=== PATIENT | male | born 1960 | race Caucasian/White ===

== ENCOUNTER 2016-08-21 15:27 | Emergency (ER) | payer SELFPAY ==
[~2016-08-21] VITALS: Ht 170.2 cm; Wt 70.3 kg
[2016-08-21 16:38] LABS: Urine Blood Negative /uL (Negative); Urine Color Yellow (Yellow); Urine Glucose Normal (Normal); Urine Hyaline Cast FEW /lpf (0 - 2); Urine Ketone TRACE (Negative); Urine Mucus FEW (None Seen); Urine Nitrite Negative (Negative); Urine RBC 1 /hpf (0 - 3); Urine Squamous Epithelial Cell FEW /hpf (<5)
[2016-08-21 16:53] LABS: Urine Bilirubin POSITIVE (Negative)
[2016-08-21 17:06] LABS: DEFINITIVE VIEW TRANSMISSION; Hemoglobin 19.9 g/dL (13.5-17.5); Mean Corpuscular Hemoglobin 30.8 pg (28.0-32.0); Mean Corpuscular Hgb Conc. 33.4 g/dL (32.0-36.0); Mean Platelet Volume 7.7 fL (7.4-10.4); Platelet Count (auto) 363 10^3/uL (140-450); Red Cell Distribution Width 14.1 % (11.6-16.0); White Blood Cell 26.7 10^3/uL (4.4-10.8)
[2016-08-21 17:09] LABS: Hematocrit 59.5 % (41.0-53.0)
[2016-08-21 17:11] LABS: Metamyelocytes % 0; Myelocytes % 0; Promyelocytes % 0; Reactive Lymphocytes 0
[2016-08-21 17:23] LABS: Albumin 3.2 g/dL (3.4-5.0); BUN/Creatinine Ratio 22.8; Bilirubin, Total 0.5 mg/dL (0.2-1.0); Calcium 8.8 mg/dL (8.5-10.1); Potassium 3.8 mmol/L (3.5-5.1); Total Protein 6.5 g/dL (6.4-8.2)
[2016-08-21 17:32] LABS: Platelet Estimate Adequate; RBC Morphology Normal
[2016-08-21] MEDS: SODIUM CHLORIDE 0.9% 2,000 ML IV ONE (22:51)
[2016-08-21] MEDS: ONDANSETRON HCL 4 MG/2 ML VIAL IV ONE (22:51)
[2016-08-21] MEDS: IOHEXOL 300 MG/ML 100ML BOTTLE IJ ONE (23:02)
[2016-08-21] MEDS: GASTROGRAFIN 30 ML SOL ONE (23:02)
[2016-08-22 04:18] LABS: DEFINITIVE VIEW TRANSMISSION; Hemoglobin 15.7 g/dL (13.5-17.5); Mean Corpuscular Hemoglobin 30.7 pg (28.0-32.0); Mean Corpuscular Hgb Conc. 34.1 g/dL (32.0-36.0); Mean Platelet Volume 7.5 fL (7.4-10.4); Platelet Count (auto) 289 10^3/uL (140-450); Red Cell Distribution Width 14.1 % (11.6-16.0); White Blood Cell 20.3 10^3/uL (4.4-10.8)
[2016-08-22 04:38] LABS: Metamyelocytes % 0; Myelocytes % 0; Promyelocytes % 0; Reactive Lymphocytes 0
[2016-08-22 04:54] LABS: Platelet Estimate Adequate
[2016-08-22 04:55] LABS: Hypersegmented Neutrophils Present; RBC Morphology Normal
[2016-08-22 05:07] VITALS: BP 107/64
== END 2016-08-22 05:22 | disposition home or self-care (01) ==
LOC: ER 15:37
DX: K52.9 Noninfective gastroenteritis and colitis, unspecified (principal); E86.0 Dehydration; F17.210 Nicotine dependence, cigarettes, uncomplicated; F12.10 Cannabis abuse, uncomplicated; F15.10 Other stimulant abuse, uncomplicated
CPT/HCPCS: 36415; 74176; 80053; 80307; 81001; 83605; 85007; 85027; 87040; 94761; 96361; 96374; 99285; J2405; J7030; Q9963

== ENCOUNTER 2016-08-28 19:39 | Emergency (ER) | payer MEDICAID ==
[~2016-08-28] VITALS: Ht 170.2 cm; Wt 72.6 kg
[2016-08-28 19:59] VITALS: BP 117/60
[2016-08-28] MEDS ORDERED: IBUPROFEN 600 MG TAB PO ONE (21:45)
== END 2016-08-28 22:55 | disposition home or self-care (01) ==
LOC: ER 19:47
DX: S93.602A Unspecified sprain of left foot, initial encounter (principal); S93.601A Unspecified sprain of right foot, initial encounter; F17.210 Nicotine dependence, cigarettes, uncomplicated; F12.10 Cannabis abuse, uncomplicated; F15.10 Other stimulant abuse, uncomplicated; W57.XXXA Bitten or stung by nonvenomous insect and other nonvenomous arthropods, initial encounter; Y93.01 Activity, walking, marching and hiking; Y99.8 Other external cause status; Y92.89 Other specified places as the place of occurrence of the external cause